=== PATIENT | female | born 1975 | race Caucasian/White ===

== ENCOUNTER 2016-05-03 12:13 | Emergency (ER) | payer SELFPAY ==
[2016-05-03 12:58] VITALS: BP 143/76; PULSE 65; TEMP 98.7; BMI 35.8
--- NOTE | 2016-05-03 14:12 | EDPRACDOC ---
- General Information Chief Complaint: Sore Throat Stated Complaint: SORE THROAT DIFF.SWALLOWING LT EAR PAIN Time Seen by Provider: 05/03/16 14:01 Mode Of Arrival: Car Home Medications: Home Medications Risperidone [Risperdal] 0.5 mg PO QHS 11/07/15 Sertraline HCl [Zoloft] 75 mg PO QAM 11/07/15 Albuterol Sulfate MDI [Proventil HFA] 2 puff INH Q4-6H PRN 12/24/15 Cyclobenzaprine HCl [Flexeril] 10 mg PO TID #21 tab 01/11/16 Meloxicam [Mobic] 15 mg PO DAILY #30 tab 01/11/16 Dicyclomine HCl [Bentyl] 20 mg PO Q6H #10 tab 02/10/16 Ondansetron [Zofran Odt] 4 mg PO Q6H #14 tab.rapdis 02/10/16 Prednisone [Deltasone] 20 mg PO BID #12 tablet 02/10/16 Meloxicam [Mobic] 7.5 mg PO BID #20 tab 05/03/16 Prednisone [Deltasone, Orasone] 2 tabs PO DAILY #20 tab 05/03/16 Allergies/Adverse Reactions: Allergies Allergy/AdvReac Type Severity Reaction Status Date / Time BEESTINGS Allergy Severe Unknown/See Uncoded 05/03/16 12:58 Comments - History of Present Illness Onset: THIS AM HPI: PT PRESENTS TODAY WITH LEFT EAR PAIN AND SORE THROAT THAT BEGAN THIS MORNING. STATES SHE HAD TO LEAVE WORK EARLY. DENIES ELLIS, FEVER, DIZZINESS, CP, SHOB, ABD PAIN, N/V/D. NO APPARENT DISTRESS. Sore Throat Symptoms: Reports: Pain Recent: Reports: None Relevant History of: Reports: None Pain Severity: Reports: Moderate Urinary Output: Normal Oral Intake: Normal Associated Signs and Symptoms: Reports: Earache ED Past Medical History - History Reviewed Yes Nurses notes reviewed and agree except as marked - Patient Medical History Respiratory History: Reports: Asthma, COPD Psychological History: Reports: Depression, Substance Use Disorder - Social Medical History Smoking Status: Heavy tobacco smoker (5 or more cigarettes/day or daily pipe/ cigar) Social History: Reports: Substance Use Disorder EDM Review of Systems - Review of Systems ROS Negative Except as Marked: Yes All systems reviewed and were negative except as marked Constitutional: No Symptoms Reported Eyes: No Symptoms Reported Ears: Pain Throat: Pain Nose: No Symptoms Reported Respiratory: No Symptoms Reported Cardiovascular: No Symptoms Reported Gastrointestinal: No Symptoms Reported Neurological: No Symptoms Reported Musculoskeletal: No Symptoms Reported Integumentary: No Symptoms Reported - Physical Exam Constitutional: Alert (Awake), No apparent distress Oriented to: Time, Person, Place Last recorded Vital Signs: Last Vital Signs Temp 98.7 F 05/03/16 12:57 Pulse 65 05/03/16 12:57 Resp 18 05/03/16 12:57 BP 143/76 05/03/16 12:57 Pulse Ox 96 05/03/16 12:57 Oxygen Pulse Oxygen Saturation 96 O2 Device Room Air Oxygen Flow Rate Fraction of Inspired Oxygen ( FIO2) - HEENT Head: Normal Eye Exam: Normal Oropharynx: Red Tympanic Membrane: Normal ENT EAC: Normal Nose: No Symptoms Reported Neck: Normal, Denies Pain, Midline - Respiratory/Cardiovascular Respiratory: Normal - CTA Cardiovascular: Normal - GI Palpation: Normal Tenderness: Non tender - Musculoskeletal Back: Normal Extremities: Normal - Integumentary Skin: Normal Lymphatics: Normal - Neurologic Cerebellar: Normal Mood Description: Normal Thought: Coherent Perception: Normal Decision Time to Discharge: 14:11 - Departure Disposition: Home Condition: Good Final Diagnosis: Acute viral pharyngitis Instructions: Pharyngitis (ED) Education/Counseling Given To: Patient Education/Counseling Given Regarding: Diagnosis, Treatment, Follow Up Referrals: None,No Provider [Primary Care Provider] - One Week Prescriptions: New Meloxicam [Mobic] 7.5 mg PO BID #20 tab Prednisone [Deltasone, Orasone] 2 tabs PO DAILY #20 tab No Action Risperidone [Risperdal] 0.5 mg PO QHS Sertraline HCl [Zoloft] 75 mg PO QAM Albuterol Sulfate MDI [Proventil HFA] 2 puff INH Q4-6H PRN PRN Reason: Shortness Of Breath Cyclobenzaprine HCl [Flexeril] 10 mg PO TID #21 tab Meloxicam [Mobic] 15 mg PO DAILY #30 tab Dicyclomine HCl [Bentyl] 20 mg PO Q6H #10 tab Ondansetron [Zofran Odt] 4 mg PO Q6H #14 tab.rapdis Prednisone [Deltasone] 20 mg PO BID #12 tablet Additional Instructions: REST AND PLENTY OF FLUIDS. FOLLOW UP WITH PCP OR FEEL FREE TO RETURN TO ED FOR ANY WORSE/CONCERNING SYMPTOMS.
== END 2016-05-03 14:32 | disposition home or self-care (01) ==
LOC: EDMC 12:13
DX: J02.9 Acute pharyngitis, unspecified (principal)
CPT/HCPCS: 99282